=== PATIENT | female | born 1980 | race Caucasian/White ===

== ENCOUNTER 2023-12-12 15:59 | Emergency (ER) | payer SELFPAY ==
[2023-12-12 16:06] VITALS: BP 131/81; PULSE 88; RESP 16; TEMP 36.7; O2SAT 97
--- NOTE | 2023-12-12 16:13 | XRR_ITS ---
PROCEDURE INFORMATION: Exam: XR Right Knee Exam date and time: 12/12/2023 4:46 PM Age: 43 years old Clinical indication: Injury or trauma; Fall; Blunt trauma and other: Twisted knee; Right; Additional info: Fall/pain TECHNIQUE: Imaging protocol: Radiologic exam of the right knee. Views: 3 views. COMPARISON: No relevant prior studies available. FINDINGS: Bones/joints: Normal. Soft tissues: Normal. XR/XR knee RT 3V* [id number] IMPRESSION: No acute findings.
[2023-12-12] MEDS: acetaminophen 500 mg Tablet 1000 MG PO (16:25)
--- NOTE | 2023-12-12 16:27 | W.ED.EXTPRO ---
Documented by User: TEODORO Hernandez 12/12/23 16:31 HPI - Extremity Problem General: Chief complaint: Extremity Injury, Lower Stated complaint: Right knee injury after a fall Time Seen by Provider: 12/12/23 16:13 Source: patient Mode of arrival: ambulatory Limitations: no limitations History of Present Illness: Patient is a 43-year-old female who presents to the emergency department after injuring her right knee prior to arrival. Patient states she was walking down the sidewalk and felt a sudden pop in her right knee when attempting to step down step, and this caused her to fall to the ground. She has no prior injury or surgery to the right knee. States that pain is worse with bearing weight, however she has remained ambulatory. She states that the pain feels like it is in the back of her knee. She also states she feels a pop when she bends her knee. She took ibuprofen just prior to arrival. Currently stating the pain is a 6/10, and at rest it does not appear present. There was no trauma to the knee reported no obvious deformity, bruising, swelling, or other symptoms to report at this time. MD Complaint: joint pain Onset (ago): minute(s) Pain Consistency: constant Location: right and knee Radiation: none Relieving factors: rest Exacerbating factors: range of motion and weight bearing Associated symptoms: Reports no associated symptoms; Deny chest pain, fever(s) or rash Review of Systems General: Reports: 10 or more systems reviewed and unremarkable except in HPI and below Const: Denies: fever(s) or chills Card: Denies: chest pain Resp: Denies: dyspnea or productive cough GI: Denies: abdominal pain, nausea, vomiting or diarrhea : Denies: flank pain Musc: Reports: joint pain; Denies: neck pain, back pain, extremity pain, extremity swelling, joint swelling, joint redness, joint warmth or muscle weakness Skin/Breast: Denies: rash Neuro: Denies: headache(s), numbness in extremities or weakness in extremities PFSH ED PFSH: Social History Smoking and tobacco/nicotine status: current every day tobacco/nicotine user Alcohol intake: never Substance/Drug Use: never Physical Exam Const: COMMON NORMALS: no acute distress, patient oriented x3, no limitations, healthy appearing, alert and well nourished HENMT: COMMON NORMALS: normocephalic and atraumatic HEAD & SCALP: normocephalic and atraumatic Neck/C-Spine: COMMON NORMALS: full ROM, supple and no meningeal signs Resp: COMMON NORMALS: normal respiratory effort, No use of accessory muscles and clear to auscultation bilaterally AUSCULTATION: clear to auscultation bilaterally Cardio: COMMON NORMALS: regular rate and regular rhythm RATE: regular rate RHYTHM: regular rhythm Extremity: COMMON NORMALS: capillary refill normal, no joint enlargement, no clubbing, cyanosis or edema and no calf tenderness NARRATIVE EXTREMITY EXAM: 5/5 strength bilaterally. Pain and weakness with range of motion of the right knee, extension worse than flexion. Negative anterior drawer. Negative Annie. Negative posterior drawer. Negative varus/valgus stress testing. Potentially small joint effusion with positive ballottement testing. No obvious deformity, bruising, or other signs of trauma. Distal neurovascular exam is intact. Antalgic gait witnessed patient walking into the emergency department. Neuro: COMMON NORMALS: patient oriented x3, moves all extremities, no focal motor deficits and no sensory deficits noted SENSORIUM/ORIENTATION: Yes alert MENINGEAL SIGNS: Yes no meningeal signs Skin: COMMON NORMALS: no rashes or lesions noted GENERAL SKIN EXAM: no rashes or lesions noted Course Vital Signs: Vital signs: Vital Signs Temperature 98.1 F 12/12/23 16:06 Pulse Rate 88 12/12/23 16:06 Respiratory Rate 16 12/12/23 16:06 Blood Pressure 131/81 12/12/23 16:06 Pulse Oximetry 97 12/12/23 16:06 Oxygen Delivery Me thod Room Air 12/12/23 16:06 Discharge Plan Discharge Patient Disposition: Home Clinical Impression: Injury of right knee Qualifiers: Encounter type: initial encounter Qualified Code(s): S89.91XA - Unspecified injury of right lower leg, initial encounter Condition: Stable Prescriptions: No Action doxycycline hyclate 100 mg tablet 100 mg PO BID 10 Days Qty: 20 0RF mupirocin 2 % ointment 1 applic topical TID Qty: 22 0RF Premarin 0.625 mg tablet 0.625 mg PO DAILY Rx Instructions: cyclically prednisone 20 mg tablet 40 mg PO DAILY 5 Days Qty: 10 0RF Discharge Orders: Discharge ED (Routine); Ordered 12/12/23 Ordered By: Eva Grant Referrals: Jessica Chisholm FNP [Primary Care Provider] - Patient Instructions: RICE Therapy Activity Restrictions/Additional Instructions: As we discussed you can use the crutches for weightbearing as tolerated. Ice and elevate the extremity. You may take [id number] analgesics to help with discomfort. As we discussed please follow-up with your primary care provider in 1 to 2 weeks if symptoms do not seem to be improving. Sign Out Sign Out Data: Patient Sign Out occurred on 12/12/23 at 17:04. Patient's care was discussed, and care was transferred from TEODORO Hernandez to TEODORO Bills. Coding Level of Care Code ED Refund Clerk for Chg Fwd Documented by User: TEODORO Bills 12/12/23 17:11 HPI - Extremity Problem General: Chief complaint: Extremity Injury, Lower Stated complaint: Right knee injury after a fall Time Seen by Provider: 12/12/23 16:13 PFSH ED PFSH: Social History Smoking and tobacco/nicotine status: current every day tobacco/nicotine user Alcohol intake: never Substance/Drug Use: never Course Vital Signs: Vital signs: Vital Signs Temperature 98.1 F 12/12/23 16:06 Pulse Rate 88 12/12/23 16:06 Respiratory Rate 16 12/12/23 16:06 Blood Pressure 131/81 12/12/23 16:06 Pulse Oximetry 97 12/12/23 16:06 Oxygen Delivery Me thod Room Air 12/12/23 16:06 MDM - Extremity (Nontraumatic) Medical Decision Making XR unremarkable. Discussed conservative therapy at home with follow up with PCP for no improvement as there was some concern for internal derangement of knee. Medical Records I reviewed the patient's medical records. XR interpretation done by ED provider, pending radiology final review Discharge Plan Discharge Patient Disposition: Home Clinical Impression: Injury of right knee Qualifiers: Encounter type: initial encounter Qualified Code(s): S89.91XA - Unspecified injury of right lower leg, initial encounter Condition: Stable Prescriptions: No Action doxycycline hyclate 100 mg tablet 100 mg PO BID 10 Days Qty: 20 0RF mupirocin 2 % ointment 1 applic topical TID Qty: 22 0RF Premarin 0.625 mg tablet 0.625 mg PO DAILY Rx Instructions: cyclically prednisone 20 mg tablet 40 mg PO DAILY 5 Days Qty: 10 0RF Discharge Orders: Discharge ED (Routine); Ordered 12/12/23 Ordered By: Eva Grant Referrals: Jessica Chisholm FNP [Primary Care Provider] - Patient Instructions: RICE Therapy Activity Restrictions/Additional Instructions: As we discussed you can use the crutches for weightbearing as tolerated. Ice and elevate the extremity. You may take [id number] analgesics to help with discomfort. As we discussed please follow-up with your primary care provider in 1 to 2 weeks if symptoms do not seem to be improving. Sign Out Sign Out Data: Patient Sign Out occurred on 12/12/23 at 17:04. Patient's care was discussed, and care was transferred from TEODORO Hernandez to TEODORO Bills. Coding Level of Care Code ED Refund Clerk for Jorge Alexis
[2023-12-12 17:24] VITALS: BP 128/83; PULSE 85; RESP 16; TEMP 36.7; O2SAT 98
== END 2023-12-12 17:23 | disposition home or self-care (01) ==
PROVIDERS: Emergency Provider Physician Assistant; Family Provider Nurse Practitioner Family; PCP Nurse Practitioner Family
DX: S89.91XA Unspecified injury of right lower leg, initial encounter (principal); Z72.0 Tobacco use; X50.9XXA Other and unspecified overexertion or strenuous movements or postures, initial encounter
CPT/HCPCS: 73562; 99283; E0114

== ENCOUNTER 2024-11-14 12:36 | Emergency (ER) | payer OTHER, SELFPAY ==
[2024-11-14 12:36] VITALS: BP 131/83; PULSE 92; RESP 16; TEMP 36.5; O2SAT 96; BMI 41.0
--- NOTE | 2024-11-14 13:07 | XRR_ITS ---
PROCEDURE INFORMATION: Exam: XR Right Knee Exam date and time: 11/14/2024 1:25 PM Age: 43 years old Clinical indication: Pain; Knee; Bilateral; Additional info: Bilateral knee pain; No known injury TECHNIQUE: Imaging protocol: Radiologic exam of the right knee. Views: 1 or 2 views. COMPARISON: CR XR knee RT 3V* [id number] 12/12/2023 4:46 PM FINDINGS: Bones/joints: Normal. Soft tissues: Normal. XR/XR knee RT 1-2V [id number] IMPRESSION: No acute findings.
--- NOTE | 2024-11-14 13:07 | XRR_ITS ---
PROCEDURE INFORMATION: Exam: XR Left Knee Exam date and time: 11/14/2024 1:23 PM Age: 43 years old Clinical indication: Pain; Knee; Bilateral; Additional info: Bilateral knee pain; No known injury TECHNIQUE: Imaging protocol: Radiologic exam of the left knee. Views: 1 or 2 views. COMPARISON: No relevant prior studies available. FINDINGS: Bones/joints: Normal. Soft tissues: Normal. XR/XR knee LT 1-2V [id number] IMPRESSION: No acute findings.
--- NOTE | 2024-11-14 13:27 | W.ED.EXTPRO ---
HPI - Extremity Problem General: Chief complaint: Extremity Problem,Nontraumatic Stated complaint: knee pain (both) Time Seen by Provider: 11/14/24 13:01 History of Present Illness: 43-year-old female that awoke 2 weeks ago with right knee pain that she thought was the weather, followed by a few days later her left knee pain. No injury. Complains of severe pain as in something is clicking on the inside and it needs to be popped. No redness. No fevers. Associated symptoms: Deny chest pain, fever(s) or rash Related Data Previous Rx's ?Medication ?Instructions ?Recorded celecoxib 200 mg capsule 200 mg PO DAILY #30 caps 11/14/24 Allergies Allergy/AdvReac Type Severity Reaction Status Date / Time No Known Allergies Allergy Verified 08/12/24 12:29 Review of Systems General: Reports: 10 or more systems reviewed and unremarkable except in HPI and below Const: Denies: fever(s), chills, body aches, fatigue or malaise Eyes: Denies: change in vision or blurry vision ENMT: Denies: throat pain or dry mouth Card: Denies: chest pain or palpitations Resp: Denies: dyspnea or productive cough GI: Denies: abdominal pain, nausea or vomiting : Denies: flank pain or difficulty voiding Musc: Reports: extremity pain, joint pain and joint swelling; Denies: neck pain Skin/Breast: Denies: rash or pruritus Neuro: Denies: headache(s), numbness in extremities or sensory changes Psych: Denies: anxiety or depression Endo: Denies: polyuria or polydipsia Maxx/Lymph: Denies: easy bruising or easy bleeding All/Imm: Denies: urticaria or throat swelling PFSH ED PFSH: Social History Smoking and tobacco/nicotine status: never used tobacco/nicotine Alcohol intake: never Substance/Drug Use: never Physical Exam Const: COMMON NORMALS: patient oriented x3 HENMT: COMMON NORMALS: normocephalic HEAD & SCALP: normocephalic Neck/C-Spine: COMMON NORMALS: full ROM, no lymphadenopathy and supple Lymph: LYMPHATIC: no lymphadenopathy noted Resp: COMMON NORMALS: normal respiratory effort and clear to auscultation bilaterally AUSCULTATION: clear to auscultation bilaterally Cardio: COMMON NORMALS: regular rate RATE: regular rate GI: COMMON NORMALS: Normal to inspection, nondistended, normoactive bowel sounds present, Soft to palpation and non-tender PALPATION: Yes Soft to palpation : COMMON NORMALS: Yes no CVA tenderness BLADDER/KIDNEY EXAM: Yes no CVA tenderness Back/Pelvis: COMMON NORMALS: no CVA tenderness THORACIC SPINE/UPPER BACK: Yes normal to inspection and Yes thoracic ROM normal Extremity: COMMON NORMALS: normal to inspection and full ROM RIGHT LOWER EXTREMITY: Yes knee joint Right knee: Yes inspection (no erythema, no wounds), Yes palpation (Pain greater on medial side), Yes ROM (Limited due to pain) and Yes special tests Right knee special tests: Posterior sag (gravity drawer) test: Negative, Anterior drawer sign: Negative, Anterior Annie test: Negative, Posterior Annie test: Negative, Valgus stress test: Negative and Varus stress test: Negative LEFT LOWER EXTREMITY: Yes knee joint Left knee: Yes inspection (No erythema), Yes palpation (Pain, greater on medial side), Yes ROM (Decreased due to pain), Yes neurovascular exam (Intact, sensation intact) and Yes special tests Left knee special tests: Posterior sag (gravity drawer) test: Negative, Anterior drawer sign: Negative, Anterior Annie test: Negative, Posterior Annie test: Negative, Valgus stress test: Negative and Varus stress test: Negative Neuro: COMMON NORMALS: patient oriented x3 and CN's II-XII intact bilaterally Psych: COMMON NORMALS: mental status grossly normal, Normal thought process present and cooperative THOUGHT PROCESS: Normal thought process present Skin: COMMON NORMALS: no rashes or lesions noted and no wounds GENERAL SKIN EXAM: no rashes or lesions noted Procedures Joint Aspiration/Injection Joint Asp./Inject. 1: Time Out Performed: Yes Side of body: left Joint Aspirated: knee Ultrasound Guidance: Yes Skin Prep: Chlorhexidine Local Anesthetic: lidocaine 1% Amount of anesthesia used (mL): 1 Needle Size Used: 22G Medication Injected, if any: Lidocaine (2 ml+1ml) Amount of medication injected (mL): 3 Patient Tolerated Procedure: well and no complications Additional Comments: No fluid obtained. Intra-articular injection. 80 mg triamcinolone 1 ml lidocaine Joint Asp./Inject. 2: Time Out Performed: Yes Side of body: right Joint Aspirated: knee Ultrasound Guidance: Yes Skin Prep: Chlorhexidine Local Anesthetic: lidocaine 1% Amount of anesthesia used (mL): 1 Needle Size Used: 22G Medication Injected, if any: Triamcinolone Acetate Amount of medication injected (mL): 3 Patient Tolerated Procedure: well and no complications Additional Comments: No fluid obtained. Intra-articular injection. 80 mg triamcinolone 1 ml lidocaine Course Vital Signs: Vital signs: Vital Signs Temperature 97.7 F 11/14/24 12:36 Pulse Rate 88 11/14/24 15:27 Respiratory Rate 16 11/14/24 12:36 Blood Pressure 125/91 11/14/24 15:27 Pulse Oximetry 99 11/14/24 15:27 Oxygen Delivery Me thod Room Air 11/14/24 12:36 MDM - Extremity (Nontraumatic) Medical Decision Making Patient is a 43-year-old female that complains of bilateral knee pain, now left greater than right with pain, however initially started in her right knee. She is status post intra-articular injections bilateral with ultrasonography. This was visualized with triamcinolone in the joint space with the lidocaine for anesthesia. Patient has ambulated in the room, and feels better with bilateral knee pressure less. She states they feel full, however the pain is less. I suspect the fullness is due to the triamcinolone. She has been given [place] x 1 here, and will sheepskin pickler her celecoxib at the pharmacy. She has been told not to utilize ibuprofen or naproxen and she may need Pepcid to prevent gastritis. Patient states understanding. All of her questions were answered to her satisfaction. She has appoint with primary care on Friday for which she will follow-up. Lab Data Radiology Impressions Knee X-Ray 11/14/24 13:07 IMPRESSION: No acute findings. XR interpretation done by ED provider, pending radiology final review ED provider radiology interpretation(s): OA with joint space narrowing bilaterally. No acute changes. Discharge Plan Discharge Patient Disposition: Home Clinical Impression: Acute bilateral knee pain Condition: Stable Prescriptions: New celecoxib 200 mg capsule 200 mg PO DAILY Qty: 30 0RF Discharge Orders: Discharge ED (Routine); Ordered 11/14/24 Ordered By: Desiree Grewal Referrals: Phan,SARA LopezP [Primary Care Provider, Nurse Practitioner] Discharge Diet: Usual diet Discharge Activity: Increase activity as tolerated Patient Instructions: P.R.I.C.E. Treatment (ED), Opioid Safety, Pain Management Activity Restrictions/Additional Instructions: Ice, elevate, compress. Utilize Celebrex (celecoxib) on a daily basis. Caution on gastric ulcers. May add Pepcid at night. Follow-up with your primary care physician as scheduled on Friday. Return to ED for fever, increasing pain. Stand Alone Forms: Work/School Release Print Language: Portuguese Coding Level of Care Code ED Sewer And Drain Technician for Jorge Alexis
[2024-11-14] MEDS: triamcinolone 40 mg/mL SDV 80 MG INTRA-ARTE ×2 (13:54)
[2024-11-14] MEDS: lidocaine 1% 10 ML INJ SUBCUT (13:54)
[2024-11-14] MEDS: HYDROcodone-acetaminophen 10-325 mg Tablet 1 TAB PO (14:32)
[2024-11-14 15:27] VITALS: BP 125/91; PULSE 88; O2SAT 99
== END 2024-11-14 15:29 | disposition home or self-care (01) ==
PROVIDERS: Emergency Provider Physician Assistant; PCP Nurse Practitioner Family
DX: M25.562 Pain in left knee (principal); M25.561 Pain in right knee
CPT/HCPCS: 20610; 73560; 99284; J3301; J9999